=== PATIENT | male | born 1950 | race Caucasian/White ===

== ENCOUNTER → 2017-12-25 08:50 | Outpatient (CLI) | payer MEDICARE, OTHER, SELFPAY ==
[2017-12-25 10:54] LABS: Hemoglobin A1C% w Est Avg Glu 5.2 % (4.0-6.0)
[2017-12-25 10:55] LABS: BUN Creatinine Ratio 18.8 (6-22); Blood Urea Nitrogen 15 mg/dL (9-20); Calcium 9.2 mg/dL (8.4-10.2); Carbon Dioxide 29 mmol/L (22-32); Chloride 99 mmol/L (98-107); Cholesterol 181 mg/dL (140-199); Estimated Glomerular Filt Rate > 60.0 mL/min (>60); Glucose 98 mg/dL (80-110); HDL Cholesterol 50 mg/dL (40-60); HEMOLYSIS < 15 (0-50); LDL Cholesterol Calculated 114 mg/dL (<100); Potassium 4.2 mmol/L (3.4-5.1); Sodium 140 mmol/L (137-145); Triglycerides 87 mg/dL (35-150)
[2017-12-25 11:27] LABS: Prostate Specific Antigen Scrn 2.51 ng/mL (0.1-4.0)
== END ==
PROVIDERS: Family Provider Internal Medicine; Visit Provider Internal Medicine
DX: I10 Essential (primary) hypertension (principal); E78.2 Mixed hyperlipidemia; Z00.00 Encounter for general adult medical examination without abnormal findings; Z13.1 Encounter for screening for diabetes mellitus
CPT/HCPCS: 36415; 80048; 80061; 83036; G0103

== ENCOUNTER → 2019-04-27 10:45 | Outpatient (CLI) | payer MEDICARE, OTHER, SELFPAY ==
--- NOTE | 2019-04-27 | DI.RAD.S_ITS ---
PROCEDURE: XR CHEST 2V INDICATIONS: Spinal stenosis, lumbar region without neurogenic TECHNIQUE: 2 views of the chest were acquired. COMPARISON: None. FINDINGS: Surgical changes and devices: None. Lungs and pleura: Lungs are clear. No pleural effusions or pneumothorax. Mediastinum: Mediastinal contours are normal. Heart size is normal. Bones and chest wall: No suspicious bony abnormalities. Soft tissues appear unremarkable. IMPRESSION: No evidence acute pulmonary process. Dictated by: Stanford Mazariegos M.D. on 04/27/2019 at 11:44 Approved by: Stanford Mazariegos M.D. on 04/27/2019 at 11:44
== END ==
PROVIDERS: Family Provider Internal Medicine; PCP Internal Medicine; Referring Provider Internal Medicine; Visit Provider Internal Medicine
DX: R06.2 Wheezing (principal); M48.061 Spinal stenosis, lumbar region without neurogenic claudication
CPT/HCPCS: 71046

== ENCOUNTER → 2019-08-09 11:28 | Outpatient (CLI) | payer MEDICARE, OTHER, SELFPAY ==
[2019-08-10 06:45] LABS: COVID19 Sendout Not Detected (Not Detect)
== END ==
PROVIDERS: Family Provider Internal Medicine; PCP Internal Medicine; Visit Provider Physician Assistant
DX: Z01.812 Encounter for preprocedural laboratory examination (principal)
CPT/HCPCS: 87635

== ENCOUNTER → 2019-08-12 12:48 | Outpatient (CLI) | payer MEDICARE, OTHER, SELFPAY ==
--- NOTE | 2019-08-18 10:04 | PM.PFT.1 ---
Pulmonary Function Test Referral & Results Date Patient Seen: 08/12/19 Requesting provider: Iveth Kohli Results: The spirometry demonstrates an FVC of 3.97 L which is 106% of predicted. The FEV1 was measured at 2.98 L which is 109% of predicted. The FEV1/FVC ratio was 75 which is 102% of predicted. Following the administration of bronchodilator there was no appreciable change. Lung volumes show an SVC of 4.03 L which is 101% of predicted. The diffusing capacity was measured at 32.43 which is 120% of predicted. The maximum voluntary ventilation was normal Interpretation: This study demonstrates normal pulmonary function
== END ==
PROVIDERS: Family Provider Internal Medicine; PCP Internal Medicine; Referring Provider Internal Medicine; Visit Provider Internal Medicine
DX: R06.2 Wheezing (principal); J98.8 Other specified respiratory disorders
CPT/HCPCS: 94060; 94726; 94729

== ENCOUNTER 2020-02-25 14:19 | Emergency (ER) | payer MEDICARE, OTHER, SELFPAY ==
[2020-02-25 14:20] VITALS: BP 171/79; PULSE 74; RESP 20; TEMP 36.9; O2SAT 97
--- NOTE | 2020-02-25 14:23 | DI.RAD.S_ITS ---
PROCEDURE: XR CHEST 1V INDICATIONS: chest pain TECHNIQUE: One view of the chest was acquired. COMPARISON: [facility], CR, XR CHEST 2V, 04/27/2019, 9:45. FINDINGS: Surgical changes and devices: None. Lungs and pleura: Lungs are clear. No pleural effusions or pneumothorax. Mediastinum: Mediastinal contours appear normal. Heart size is normal. Bones and chest wall: No suspicious bony lesions. Overlying soft tissues appear unremarkable. IMPRESSION: Stable radiographic evaluation of the chest without acute cardiopulmonary abnormalities or focal airspace disease. There are no imaging findings to explain patient's chest pain. Dictated by: Wood Mandel M.D. on 02/25/2020 at 13:58 Approved by: Wood Mandel M.D. on 02/25/2020 at 13:59
[2020-02-25 14:38] LABS: Add Manual Diff / Slide Review NO; Basophils Absolute Auto 0 /uL (0-100); Basophils Percent Auto 0.8 % (0-2); Eosinophils Absolute Auto 100 /uL (0-450); Eosinophils Percent Auto 2.9 % (2-4); Hematocrit 43.4 % (41-53); Lymphocytes Absolute Auto 1000 /uL (1100-4500); Lymphocytes Percent Auto 24.2 % (25-40); Mean Corpuscular HGB Conc 34.6 % (30-36); Mean Corpuscular Hemoglobin 33.3 PG (26-34); Mean Corpuscular Volume 96.3 fL (80-100); Monocytes Absolute Auto 500 /uL (0-900); Monocytes Percent Auto 12.8 % (3-14); Neutrophils Absolute Auto 2400 /uL (1500-7000); Neutrophils Percent Auto 59.3 % (50-75); Platelet Count 217 X10^3/uL (150-400); Red Blood Cell Count 4.51 X10^6/uL (4.5-5.9); Red Cell Distribution Width 12.6 % (11.6-14.8)
[2020-02-25 14:47] LABS: PTT Partial Thromboplastin Tim 36 SECONDS (26.4-36.2)
[2020-02-25 14:51] LABS: Alanine Aminotransferase 67 IU/L (<50); Albumin 4.5 g/dL (3.5-5.0); Albumin Globulin Ratio 1.4 (1.0-2.8); Alkaline Phosphatase 98 U/L (38-126); Aspartate Aminotransferase 50 IU/L (17-59); BUN Creatinine Ratio 19.1 (6-22); Bilirubin Total 0.6 mg/dL (0.2-1.3); Blood Urea Nitrogen 17 mg/dL (9-20); Calcium 9.3 mg/dL (8.4-10.2); Carbon Dioxide 28 mmol/L (22-32); Chloride 103 mmol/L (98-107); Creatine Kinase 72 U/L (55-170); Estimated Glomerular Filt Rate > 60.0 mL/min (>60); Globulin 3.3 g/dL (1.7-4.1); Glucose 118 mg/dL (80-110); HEMOLYSIS < 15 (0-50); Lipase 69 U/L (23-300); Potassium 4.2 mmol/L (3.4-5.1); Sodium 134 mmol/L (137-145); Total Protein 7.8 g/dL (6.3-8.2)
--- NOTE | 2020-02-25 14:57 | ED_ITS ---
HPI - Chest Pain <KAT Newby-BC - Last Filed: 02/25/20 17:29> General Chief Complaint: Chest Pain Stated Complaint: thinks he had a heart attack Time Seen by Provider: 02/25/20 14:46 Source: patient Mode of arrival: Ambulatory Limitations: no limitations History of Present Illness HPI narrative: The patient is a 69-year-old male non with history of hypertension who presents with a chief complaint of ?I think I had a heart attack.He states that about 10 days ago, he had sudden spasm around his left shoulder blade that lasted about 15 minutes. He states that happened again this morning. This morning he felt slight tingling in his fingers on his left hand. He denies any lightheadedness or dizziness. He denies any current pain. He has not taken anything to feel better. He states he takes 2 medications for high blood pressure, but he does not know what they are. He denies any palpitations or fluttering in his chest. He states that his pain lasted for about 15 minutes this morning. He states it feels like a muscle spasm, but he is worried about his heart is with comes to the emergency department for evaluation. He denies any major medical history other than his high blood pressure. Related Data Home Medications Medication Instructions Recorded Confirmed Oxycodone/Acetaminophen (Percocet 1 tab PO Q4HP #0 10/24/10 5-325 MG Tablet) [DIOVAN HCT] 1 tab PO QAM #0 10/24/10 amlodipine [Norvasc] 10 mg PO QDAY #0 10/24/10 cephalexin [Keflex] 500 mg PO TID #0 10/24/10 hydrochlorothiazide 25 mg PO QDAY #0 10/24/10 metoprolol tartrate 50 mg PO QAM #0 10/24/10 Review of Systems <KRYSTA Newby - Last Filed: 02/25/20 17:29> Review of Systems Narrative: GENERAL: Denies chills, fatigue, malaise, fever, sweats. HEENT: Denies sinus pain, ear pain, sore throat, difficulty swallowing, dizziness. RESPIRATORY: Denies dyspnea, cough, wheezing, hemoptysis, sputum. CARDIOVASCULAR: See HPI GASTROINTESTINAL: Denies nausea, vomiting, abdominal pain, diarrhea, constipation, melena. : Denies dysuria, frequency, incontinence, hematuria, urinary retention. MUSCULOSKELETAL: See HPI SKIN: Denies rash, skin lesions, or other NEUROLOGIC: Denies weakness, headache, numbness, change in speech, confusion, seizures, incoordination. PSYCHIATRIC: No concerning psychosocial issues. 12 point review of systems is negative except for those stated above Patient History <KRYSTA Newby - Last Filed: 02/25/20 17:29> Medical History (Updated 02/25/20 @ 16:36 by KRYSTA Newby) Hypertension Exam <KRYSTA Newby - Last Filed: 02/25/20 17:29> Narrative Exam Narrative: GENERAL: This is a well-nourished, well-developed patient, in no acute distress HEAD: Atraumatic. Normocephalic. No temporal or scalp tenderness. EYES: Pupils equal round and reactive. Extraocular motions intact. No scleral icterus. No injection or drainage. ENT: Nose without bleeding, purulent drainage or septal hematoma. Throat without erythema, tonsillar hypertrophy or exudate. Uvula midline. Airway patent. NECK: Trachea midline. No JVD or lymphadenopathy. Supple, nontender, no meningeal signs. CARDIOVASCULAR: Regular rate and rhythm RESPIRATORY: Clear to auscultation. Breath sounds equal bilaterally. No wheezes, rales, or rhonchi. No cough. No increased respiratory effort. No accessory muscle use. GASTROINTESTINAL: Abdomen soft, non-tender, nondistended. No hepato- splenomegaly, or palpable masses. No guarding. EXTREMITIES: No clubbing, cyanosis, or edema. No joint tenderness, effusion, or edema noted. BACK: Nontender without deformity or crepitance. No flank tenderness. pain to palpation of left paraspinal muscles along left scapula. NEURO: AOx3. SKIN: No rash or erythema on visible skin. No rash or laceration noted on back. Initial Vital Signs Initial Vital Signs: Vital Signs Temperature 98.5 F 02/25/20 14:20 Pulse Rate 74 02/25/20 14:20 Respiratory Rate 20 02/25/20 14:20 Blood Pressure 171/79 H 02/25/20 14:20 Pulse Oximetry 97 02/25/20 14:20 <Crystal Cyr MD - Last Filed: 02/25/20 18:36> Initial Vital Signs Initial Vital Signs: Vital Signs Temperature 98.5 F 02/25/20 14:20 Pulse Rate 74 02/25/20 14:20 Respiratory Rate 20 02/25/20 14:20 Blood Pressure 171/79 H 02/25/20 14:20 Pulse Oximetry 97 02/25/20 14:20 Scores <Judy PosadaALISSA - Last Filed: 02/25/20 17:29> GCS [place] coma scale eye opening: Spontaneous Jonn coma scale verbal response: Orientated [place] coma scale motor response: Obey commands Jonn coma scale total score: 15 HEART Score Heart Score history: Slightly Suspicious Heart Score EKG: Normal Heart Score Age: > or = 65 years old Heart Score risk factors: 1-2 risk factors Heart Score troponin: < or = to normal limit Heart Score Total: 3 Course <Judy PosadaALISSA - Last Filed: 02/25/20 17:29> Orders Ordered: ED Orders 02/25/20 14:23 XR chest 1V Stat EKG-12 Lead Stat 02/25/20 14:31 Complete Blood Count AUTO DIFF Stat Comprehensive Metabolic Panel Stat Lipase Stat NT-proBNP (BNP-Adult 18+) Stat Partial Thromboplastin Time Stat Prothrombin Time INR Stat Troponin & CK Cardiac Panel Stat 02/25/20 16:30 Troponin & CK Cardiac Panel Stat Vital Signs Vital signs: Vital Signs - 8 hr 02/25/20 14:20 02/25/20 17:11 Temperature 98.5 F Pulse Rate 74 54 L Respiratory Rate 20 20 Blood Pressure 171/79 H 150/80 H Pulse Oximetry 97 96 <Crystal Cyr MD - Last Filed: 02/25/20 18:36> Orders Ordered: ED Orders 02/25/20 14:23 XR chest 1V Stat EKG-12 Lead Stat 02/25/20 14:31 Complete Blood Count AUTO DIFF Stat Comprehensive Metabolic Panel Stat Lipase Stat NT-proBNP (BNP-Adult 18+) Stat Partial Thromboplastin Time Stat Prothrombin Time INR Stat Troponin & CK Cardiac Panel Stat 02/25/20 16:30 Troponin & CK Cardiac Panel Stat Vital Signs Vital signs: Vital Signs - 8 hr 02/25/20 14:20 02/25/20 17:11 Temperature 98.5 F Pulse Rate 74 54 L Respiratory Rate 20 20 Blood Pressure 171/79 H 150/80 H Pulse Oximetry 97 96 MDM - Chest Pain <Judy Posada, SECURITY SERVICES SPECIALIST- - Last Filed: 02/25/20 17:29> Lab Data Attestation: I reviewed the patient's lab results. Result diagrams: 02/25/20 14:31 02/25/20 14:31 Labs: Lab Results 02/25/20 02/25/20 02/25/20 Range/Units 14:31 14:31 14:31 WBC 4.0 L (4.5-11.0) X10^3/uL RBC 4.51 (4.5-5.9) X10^6/uL Hgb 15.0 (13.5-17.5) g/dL Hct 43.4 (41-53) % MCV 96.3 (80-100) fL MCH 33.3 (26-34) PG MCHC 34.6 (30-36) % RDW 12.6 (11.6-14.8) % Plt Count 217 (150-400) X10^3/uL Neut % (Auto) 59.3 (50-75) % Lymph % (Auto) 24.2 L (25-40) % [place] % (Auto) 12.8 (3-14) % Eos % (Auto) 2.9 (2-4) % Baso % (Auto) 0.8 (0-2) % Neut # (Auto) 2400 (2765-6055) /uL Lymph # (Auto) 1000 L (0046-4398) /uL [place] # (Auto) 500 (0-900) /uL Eos # (Auto) 100 (0-450) /uL Baso # (Auto) 0 (0-100) /uL PT 12.0 (10.1-12.7) SECONDS INR 1.0 (0.9-1.3) APTT 36 (26.4-36.2) SECONDS Sodium 134 L (137-145) mmol/L Potassium 4.2 (3.4-5.1) mmol/L Chloride 103 (98-107) mmol/L Carbon Dioxide 28 (22-32) mmol/L BUN 17 (9-20) mg/dL Creatinine 0.89 (0.66-1.25) mg/dL Estimated GFR > 60.0 (>60) mL/min BUN/Creatinine Ratio 19.1 (6-22) Glucose 118 H (80-110) mg/dL Calcium 9.3 (8.4-10.2) mg/dL Total Bilirubin 0.6 (0.2-1.3) mg/dL AST 50 (17-59) IU/L ALT 67 H (<50) IU/L Alkaline Phosphatase 98 (38-126) U/L Total Creatine Kinase 72 (55-170) U/L CK-MB (CK-2) TNP CK-MB (CK-2) Rel Index TNP Troponin I < 0.012 (0.01-0.034) ng/mL NT-Pro-B Natriuret Pep (<125) pg/mL Total Protein 7.8 (6.3-8.2) g/dL Albumin 4.5 (3.5-5.0) g/dL Globulin 3.3 (1.7-4.1) g/dL Albumin/Globulin Ratio 1.4 (1.0-2.8) Lipase 69 (23-300) U/L 02/25/20 02/25/20 Range/Units 14:31 16:30 WBC (4.5-11.0) X10^3/uL RBC (4.5-5.9) X10^6/uL Hgb (13.5-17.5) g/dL Hct (41-53) % MCV (80-100) fL MCH (26-34) PG MCHC (30-36) % RDW (11.6-14.8) % Plt Count (150-400) X10^3/uL Neut % (Auto) (50-75) % Lymph % (Auto) (25-40) % [place] % (Auto) (3-14) % Eos % (Auto) (2-4) % Baso % (Auto) (0-2) % Neut # (Auto) (9945-8930) /uL Lymph # (Auto) (5533-0747) /uL [place] # (Auto) (0-900) /uL Eos # (Auto) (0-450) /uL Baso # (Auto) (0-100) /uL PT (10.1-12.7) SECONDS INR (0.9-1.3) APTT (26.4-36.2) SECONDS Sodium (137-145) mmol/L Potassium (3.4-5.1) mmol/L Chloride (98-107) mmol/L Carbon Dioxide (22-32) mmol/L BUN (9-20) mg/dL Creatinine (0.66-1.25) mg/dL Estimated GFR (>60) mL/min BUN/Creatinine Ratio (6-22) Glucose (80-110) mg/dL Calcium (8.4-10.2) mg/dL Total Bilirubin (0.2-1.3) mg/dL AST (17-59) IU/L ALT (<50) IU/L Alkaline Phosphatase (38-126) U/L Total Creatine Kinase 63 (55-170) U/L CK-MB (CK-2) TNP CK-MB (CK-2) Rel Index TNP Troponin I < 0.012 (0.01-0.034) ng/mL NT-Pro-B Natriuret Pep 79 (<125) pg/mL Total Protein (6.3-8.2) g/dL Albumin (3.5-5.0) g/dL Globulin (1.7-4.1) g/dL Albumin/Globulin Ratio (1.0-2.8) Lipase (23-300) U/L Imaging Data Chest x-ray: Radiologist's Impression: [address] [place] [id number] ReportSigned Patient: Jaden High R#: [id number]: 9Acct:[id number]/Sex: 69 / MDate of Service: 02/25/20Loc: EDAccession Number: [id number] Procedure: XR chest 1V Ordering Provider: Crystal Cyr MD PROCEDURE: XR CHEST 1V INDICATIONS: chest pain TECHNIQUE: One view of the chest was acquired. COMPARISON: [facility], , XR CHEST 2V, 04/27/2019, 9:45. FINDINGS: Surgical changes and devices: None. Lungs and pleura: Lungs are clear. No pleural effusions or pneumothorax. Mediastinum: Mediastinal contours appear normal. Heart size is normal. Bones and chest wall: No suspicious bony lesions. Overlying soft tissues appear unremarkable. IMPRESSION: Stable radiographic evaluation of the chest without acute cardiopulmonary abnormalities or focal airspace disease. There are no imaging findings to explain patient's chest pain. Dictated by: Wood Mandel M.D. on 02/25/2020 at 13:58 Approved by: Wood Mandel M.D. on 02/25/2020 at 13:59 MDM Narrative Medical decision making narrative: The patient is a 69-year-old male nonsmoker with history of hypertension who presents with a chief complaint of 2 episodes of chest pain over the past 10 days or so. His initial troponin is negative, chest x-ray is negative. The pain chin is pain-free throughout his ER stay. Repeat troponin ordered at 4:30 p.m.. Exam correlates with musculoskeletal pain given pain to palpation of thoracic paraspinal muscle along scapula. Patient signed out to Dr Cyr with the 2nd troponin pending at 16:30 <Crystal Cyr MD - Last Filed: 02/25/20 18:36> Medical Records Data Attestation: I reviewed the patient's medical records. Lab Data Attestation: I reviewed the patient's lab results. Labs: Lab Results 02/25/20 02/25/20 02/25/20 Range/Units 14:31 14:31 14:31 WBC 4.0 L (4.5-11.0) X10^3/uL RBC 4.51 (4.5-5.9) X10^6/uL Hgb 15.0 (13.5-17.5) g/dL Hct 43.4 (41-53) % MCV 96.3 (80-100) fL MCH 33.3 (26-34) PG MCHC 34.6 (30-36) % RDW 12.6 (11.6-14.8) % Plt Count 217 (150-400) X10^3/uL Neut % (Auto) 59.3 (50-75) % Lymph % (Auto) 24.2 L (25-40) % [place] % (Auto) 12.8 (3-14) % Eos % (Auto) 2.9 (2-4) % Baso % (Auto) 0.8 (0-2) % Neut # (Auto) 2400 (5581-2841) /uL Lymph # (Auto) 1000 L (7381-8327) /uL [place] # (Auto) 500 (0-900) /uL Eos # (Auto) 100 (0-450) /uL Baso # (Auto) 0 (0-100) /uL PT 12.0 (10.1-12.7) SECONDS INR 1.0 (0.9-1.3) APTT 36 (26.4-36.2) SECONDS Sodium 134 L (137-145) mmol/L Potassium 4.2 (3.4-5.1) mmol/L Chloride 103 (98-107) mmol/L Carbon Dioxide 28 (22-32) mmol/L BUN 17 (9-20) mg/dL Creatinine 0.89 (0.66-1.25) mg/dL Estimated GFR > 60.0 (>60) mL/min BUN/Creatinine Ratio 19.1 (6-22) Glucose 118 H (80-110) mg/dL Calcium 9.3 (8.4-10.2) mg/dL Total Bilirubin 0.6 (0.2-1.3) mg/dL AST 50 (17-59) IU/L ALT 67 H (<50) IU/L Alkaline Phosphatase 98 (38-126) U/L Total Creatine Kinase 72 (55-170) U/L CK-MB (CK-2) TNP CK-MB (CK-2) Rel Index TNP Troponin I < 0.012 (0.01-0.034) ng/mL NT-Pro-B Natriuret Pep (<125) pg/mL Total Protein 7.8 (6.3-8.2) g/dL Albumin 4.5 (3.5-5.0) g/dL Globulin 3.3 (1.7-4.1) g/dL Albumin/Globulin Ratio 1.4 (1.0-2.8) Lipase 69 (23-300) U/L 02/25/20 02/25/20 Range/Units 14:31 16:30 WBC (4.5-11.0) X10^3/uL RBC (4.5-5.9) X10^6/uL Hgb (13.5-17.5) g/dL Hct (41-53) % MCV (80-100) fL MCH (26-34) PG MCHC (30-36) % RDW (11.6-14.8) % Plt Count (150-400) X10^3/uL Neut % (Auto) (50-75) % Lymph % (Auto) (25-40) % [place] % (Auto) (3-14) % Eos % (Auto) (2-4) % Baso % (Auto) (0-2) % Neut # (Auto) (5727-3541) /uL Lymph # (Auto) (4489-9624) /uL [place] # (Auto) (0-900) /uL Eos # (Auto) (0-450) /uL Baso # (Auto) (0-100) /uL PT (10.1-12.7) SECONDS INR (0.9-1.3) APTT (26.4-36.2) SECONDS Sodium (137-145) mmol/L Potassium (3.4-5.1) mmol/L Chloride (98-107) mmol/L Carbon Dioxide (22-32) mmol/L BUN (9-20) mg/dL Creatinine (0.66-1.25) mg/dL Estimated GFR (>60) mL/min BUN/Creatinine Ratio (6-22) Glucose (80-110) mg/dL Calcium (8.4-10.2) mg/dL Total Bilirubin (0.2-1.3) mg/dL AST (17-59) IU/L ALT (<50) IU/L Alkaline Phosphatase (38-126) U/L Total Creatine Kinase 63 (55-170) U/L CK-MB (CK-2) TNP CK-MB (CK-2) Rel Index TNP Troponin I < 0.012 (0.01-0.034) ng/mL NT-Pro-B Natriuret Pep 79 (<125) pg/mL Total Protein (6.3-8.2) g/dL Albumin (3.5-5.0) g/dL Globulin (1.7-4.1) g/dL Albumin/Globulin Ratio (1.0-2.8) Lipase (23-300) U/L MDM Narrative Medical decision making narrative: Patient's chart is reviewed. Second troponin is unremarkable. Patient is independently examined and is completely pain-free at this he is planning to follow-up with his doctor, Dr. Kohli to discuss possibility of the outpatient stress test. At this point there is no evidence of acute coronary syndrome. Patient is safe for home discharge Discharge Plan Departure Patient Disposition: Home Clinical Impression: Atypical chest pain, Back muscle spasm Instructions: DI for Atypical Chest Pain, DI for Chest Pain, DI for Muscle Spasm Activity Restrictions/Additional Instructions: Thank you for trusting us with your care today. As discussed, your cardiac evaluation came back well. Please follow-up with primary care provider next few days. As discussed, please come back to the emergency department for any acute concerns such as concern of heart attack stroke etcetera. Prescriptions: No Action Oxycodone/Acetaminophen (Percocet 5-325 MG Tablet) 1 tab PO Q4HP Qty: 0 RF: 0 amlodipine [Norvasc] 5 MG tablet 10 mg PO QDAY Qty: 0 RF: 0 cephalexin [Keflex] 500 MG capsule 500 mg PO TID Qty: 0 RF: 0 metoprolol tartrate 50 MG tablet 50 mg PO QAM Qty: 0 RF: 0 hydrochlorothiazide 25 MG tablet 25 mg PO QDAY Qty: 0 RF: 0 [DIOVAN HCT] 1 tab PO QAM Qty: 0 RF: 0 Referrals: Iveth Kohli MD [Primary Care Provider] -
[2020-02-25 15:02] LABS: Troponin I < 0.012 ng/mL (0.01-0.034)
[2020-02-25 15:46] LABS: NT-proBNP (BNP-Adult 18+) 79 pg/mL (<125)
[2020-02-25 16:57] LABS: Creatine Kinase 63 U/L (55-170)
[2020-02-25 17:09] LABS: Troponin I < 0.012 ng/mL (0.01-0.034)
[2020-02-25 17:11] VITALS: BP 150/80; PULSE 54; RESP 20; O2SAT 96
== END 2020-02-25 18:43 | disposition home or self-care (01) ==
PROVIDERS: Nurse Practitioner Family; Emergency Provider Emergency Medicine; Family Provider Internal Medicine; PCP Internal Medicine
DX: R07.89 Other chest pain (principal); M62.830 Muscle spasm of back; R20.2 Paresthesia of skin; I10 Essential (primary) hypertension
CPT/HCPCS: 36415; 71045; 80053; 82550; 83690; 83880; 84484; 85025; 85610; 85730; 93005; 93010; 99281; 99284

== ENCOUNTER → 2023-02-04 09:48 | Outpatient (CLI) | payer MEDICARE, OTHER, SELFPAY ==
[2023-02-04 11:08] LABS: Hematocrit 44.2 % (41-53); Hemoglobin 15.3 g/dL (13.5-17.5); Mean Corpuscular HGB Conc 34.7 % (30-36); Mean Corpuscular Hemoglobin 33.5 PG (26-34); Mean Corpuscular Volume 96.4 fL (80-100); Platelet Count 213 X10^3/uL (150-400); Red Blood Cell Count 4.58 X10^6/uL (4.5-5.9); White Blood Cell Count 3.5 X10^3/uL (4.5-11.0)
[2023-02-04 12:45] LABS: Alanine Aminotransferase 48 IU/L (<50); Albumin 4.4 g/dL (3.5-5.0); Albumin Globulin Ratio 1.3 (1.0-2.8); Alkaline Phosphatase 82 U/L (38-126); Aspartate Aminotransferase 42 IU/L (17-59); BUN Creatinine Ratio 16.5 (6-22); Bilirubin Total 0.9 mg/dL (0.2-1.3); Blood Urea Nitrogen 14 mg/dL (9-20); Calcium 9.8 mg/dL (8.4-10.2); Carbon Dioxide 30 mmol/L (22-32); Chloride 98 mmol/L (98-107); Cholesterol 183 mg/dL (140-199); Estimated Glomerular Filt Rate > 60 mL/min (>60); Globulin 3.5 g/dL (1.7-4.1); Glucose 104 mg/dL (80-110); HDL Cholesterol 42 mg/dL (40-60); HEMOLYSIS < 15 (0-50); LDL Cholesterol Calculated 105 mg/dL (<100); Sodium 135 mmol/L (137-145); Total Protein 7.9 g/dL (6.3-8.2); Triglycerides 181 mg/dL (35-150)
[2023-02-04 13:16] LABS: Prostate Specific Antigen 3.57 ng/mL (0.10-4.00)
[2023-02-04 13:17] LABS: TSH w/ Reflex to FT4 1.64 uIU/mL (0.47-4.68)
== END ==
PROVIDERS: PCP Internal Medicine; Referring Provider Internal Medicine; Visit Provider Internal Medicine
DX: N40.1 Benign prostatic hyperplasia with lower urinary tract symptoms (principal); E78.2 Mixed hyperlipidemia; N13.8 Other obstructive and reflux uropathy; I10 Essential (primary) hypertension
CPT/HCPCS: 36415; 80053; 80061; 84153; 84443; 85027

== ENCOUNTER → 2023-05-28 16:51 | Outpatient (CLI) | payer MEDICARE, OTHER, SELFPAY ==
[2023-05-28 17:37] LABS: Hematocrit 42.6 % (41-53); Hemoglobin 14.6 g/dL (13.5-17.5); Mean Corpuscular HGB Conc 34.2 % (30-36); Mean Corpuscular Hemoglobin 33.3 PG (26-34); Mean Corpuscular Volume 97.2 fL (80-100); Platelet Count 205 X10^3/uL (150-400); Red Blood Cell Count 4.39 X10^6/uL (4.5-5.9); Red Cell Distribution Width 13.2 % (11.6-14.8); White Blood Cell Count 4.9 X10^3/uL (4.5-11.0)
[2023-05-28 17:57] LABS: Alanine Aminotransferase 38 IU/L (<50); Albumin 4.9 g/dL (3.5-5.0); Albumin Globulin Ratio 1.6 (1.0-2.8); Alkaline Phosphatase 98 U/L (38-126); Aspartate Aminotransferase 41 IU/L (17-59); BUN Creatinine Ratio 23.9 (6-22); Bilirubin Total 0.7 mg/dL (0.2-1.3); Blood Urea Nitrogen 21 mg/dL (9-20); Calcium 9.6 mg/dL (8.4-10.2); Carbon Dioxide 27 mmol/L (22-32); Chloride 105 mmol/L (98-107); Cholesterol 135 mg/dL (140-199); Estimated Glomerular Filt Rate > 60 mL/min (>60); Glucose 103 mg/dL (80-110); HDL Cholesterol 62 mg/dL (40-60); HEMOLYSIS < 15 (0-50); LDL Cholesterol Calculated 54 mg/dL (<100); Potassium 4.3 mmol/L (3.4-5.1); Sodium 137 mmol/L (137-145); Total Protein 7.9 g/dL (6.3-8.2); Triglycerides 95 mg/dL (35-150)
[2023-05-28 18:26] LABS: Prostate Specific Antigen 3.44 ng/mL (0.10-4.00)
== END ==
PROVIDERS: PCP Internal Medicine; Referring Provider Internal Medicine; Visit Provider Internal Medicine
DX: N40.1 Benign prostatic hyperplasia with lower urinary tract symptoms (principal); E78.2 Mixed hyperlipidemia; N13.8 Other obstructive and reflux uropathy; I10 Essential (primary) hypertension
CPT/HCPCS: 36415; 80053; 80061; 84153; 84443; 85027

== ENCOUNTER → 2024-06-14 16:16 | Outpatient (CLI) | payer MEDICARE, OTHER, SELFPAY ==
[2024-06-14 17:27] LABS: Aspartate Aminotransferase 35 IU/L (17-59); BUN Creatinine Ratio 16.8 (6-22); Blood Urea Nitrogen 16 mg/dL (9-20); Calcium 9.7 mg/dL (8.4-10.2); Carbon Dioxide 25 mmol/L (22-32); Chloride 104 mmol/L (98-107); Cholesterol 139 mg/dL (140-199); Estimated Glomerular Filt Rate > 60 mL/min (>60); Glucose 97 mg/dL (70-99); HDL Cholesterol 67 mg/dL (40-60); HEMOLYSIS < 15 (0-50); LDL Cholesterol Calculated 49 mg/dL (<100); Potassium 4.4 mmol/L (3.4-5.1); Sodium 135 mmol/L (137-145); Triglycerides 114 mg/dL (35-150)
[2024-06-14 17:56] LABS: Prostate Specific Antigen 4.12 ng/mL (0.10-4.00)
== END ==
PROVIDERS: PCP Internal Medicine; Referring Provider Internal Medicine; Visit Provider Internal Medicine
DX: R73.01 Impaired fasting glucose (principal); E78.2 Mixed hyperlipidemia; N40.1 Benign prostatic hyperplasia with lower urinary tract symptoms; I10 Essential (primary) hypertension; N13.8 Other obstructive and reflux uropathy
CPT/HCPCS: 36415; 80048; 80061; 83036; 84153; 84450

== ENCOUNTER → 2024-07-14 10:58 | Outpatient (CLI) | payer MEDICARE, OTHER, SELFPAY ==
[2024-07-14 13:35] LABS: Hep C Virus Ab w/Reflex Quant NEGATIVE s/c (NEGATIVE)
[2024-07-14 14:38] LABS: Prostate Specific Antigen 3.82 ng/mL (0.10-4.00)
== END ==
PROVIDERS: PCP Internal Medicine; Referring Provider Internal Medicine; Visit Provider Internal Medicine
DX: R97.20 Elevated prostate specific antigen [PSA] (principal); Z11.59 Encounter for screening for other viral diseases
CPT/HCPCS: 36415; 84153; 86803